=== PATIENT | female | born 1990 | race Caucasian/White ===

== ENCOUNTER 2016-10-10 00:17 | Emergency (ER) | payer MEDICAID ==
[2016-10-10] MEDS ORDERED: ONDANSETRON ODT 4 MG TAB ONE (01:14)
== END 2016-10-10 01:59 | disposition home or self-care (01) ==
LOC: ER 00:17
CPT/HCPCS: 81003; 87880

== ENCOUNTER 2016-10-19 12:31 | Emergency (ER) | payer MEDICAID ==
[2016-10-19] MEDS ORDERED: METOCLOPRAMIDE 10 MG/2 ML VIAL ONE (13:42)
[2016-10-19] MEDS ORDERED: ONDANSETRON ODT 4 MG TAB ONE (13:42)
[2016-10-19] MEDS ORDERED: SODIUM CHLORIDE 0.9% 1,000 ML ONE (13:42)
[2016-10-19] MEDS ORDERED: DIPHENHYDRAMINE 50 MG/ML VIAL ONE (13:42)
== END 2016-10-19 19:34 | disposition home or self-care (01) ==
LOC: ER 12:31
DX: O21.9 Vomiting of pregnancy, unspecified (principal); Z3A.09 9 weeks gestation of pregnancy; K52.9 Noninfective gastroenteritis and colitis, unspecified
CPT/HCPCS: 36415; 80053; 81001; 83690; 84703; 85025; 87088; 96361; 96374; 96375